=== PATIENT | male | born 1980 | race Caucasian/White ===

== ENCOUNTER 2023-08-14 04:41 | Emergency (ER) | payer BC, SELFPAY ==
[2023-08-14 04:43] VITALS: BP 157/96
--- NOTE | 2023-08-14 05:16 | ED.GENMED ---
History of Present Illness
<SHAWN Colvin - Last Filed: 08/14/23 07:11>
General
Chief Complaint: Back Pain
Source: patient
Exam Limitations: none
Time Seen by Provider: 08/14/23 04:53
Travel History
Have you had any contact with someone who has COVID-19?: No
Do you have any symptoms of coronavirus? Fever > 100 degrees, chills, cough, shortness of breath, sore throat, loss of taste or smell, muscle aches, or headache?: No
History of Present Illness
History of Present Illness:
42 YO M with a PMH of depression and HTN presents here today with complaints of chronic back pain x years. Pt reports he's had back pain ever since playing football in college. He saw his PCP one month ago, who ordered an MRI. Due to insurance
issues, he was unable to complete it. However, he is scheduled for an MRI this Tuesday. He went to urgent care yesterday. They prescribed him a steroid pack and Tylenol. He is unsure if he has felt relief since starting the steroid pack. He
reports his back pain is in his lower back. He complains of worsening lumbar spine pain and the surrounding muscles. He states it started to worsen over the holiday weekend. He does report occasional numbness and tingling down his legs through his
hips, B/L.
He states his pain feels similar to when he had kidney stones. He denies dysuria, polyuria, and burning. Denies abdominal tenderness.
Denies bowel or bladder incontinence.
Past History
<SHAWN Colvin - Last Filed: 08/14/23 07:11>
Past History
ED Past Medical History: Psychiatric (Anxiety) and Other (kidney stones)
ED Past Surgical History: Tonsilectomy and Other (Uvulectomy)
Social History
Tobacco: Non-smoker
Alcohol: None
Drug: Marijuana
Personal:
Living: with family
Employment: Employed
Review of Systems
<SHAWN Colvin - Last Filed: 08/14/23 07:11>
Review of Systems
Constitutional: Reports no symptoms
EENT: Reports no symptoms
Respiratory: Reports no symptoms
Cardiac: Reports no symptoms
ABD/GI: Reports no symptoms
: Reports no symptoms
Musculoskeletal: Reports muscle pain, muscle stiffness and back pain
Skin: Reports no symptoms
Neurological: Reports no symptoms
Phy Exam
<SHAWN Colvin - Last Filed: 08/14/23 07:11>
Physical Exam
Physical Exam:
+Tenderness over the paraspinal muscles surrounding the lumbar spine
+Tenderness over the lumbar spine
(-)Straight leg test B/L
(-)CVA Tenderness
(-)Abdominal pain
General Physical Exam
General Presentation: well appearing
General age: appears stated age
General Skin: warm and dry
General Habitus: normal
General Mental: alert
Cardiovascular Exam
Cardiovascular Exam: regular rate/rhythm
Pulmonary Exam
Pulmonary Exam: lungs clear and no respiratory distress
Gastrointestinal Exam
Gastrointestinal Exam: non tender, soft and non distended
Neurological Exam
Neurological Exam: alert, oriented x3 and speech normal
Musculoskeletal Exam
Musculoskeletal Exam: back pain and back tenderness
Psychiatric Exam
Psychiatric Exam: normal mood/affect
Course
<Maty Carrillo [facility] - Last Filed: 08/14/23 07:11>
Orders/Labs/Results
Orders:
Orders
08/14/23 06:34
CT Abd/pel Without Iv Or Oral Urgent
Comment:
Reason For Exam: right flank pain
08/14/23 06:45
Urinalysis Reflex To Culture Urgent
Date Specimen was Collected: 08/14/23
Time Specimen was Collected: 05:36
Urine Microscopic Reflex Cult Urgent
Abnormal Lab Results
08/14/23
06:45
Ur Occult Blood Reflex 2+ A
(Negative)
Urine RBC 3-6 A /HPF
(0-2)
Vital Signs
Initial and Last Documented VS:
Initial Vital Signs
Temp Pulse Resp BP Pulse Ox
98.1 F 68 16 157/96 98
08/14/23 04:43 08/14/23 04:43 08/14/23 04:43 08/14/23 04:43 08/14/23 04:43
Last Documented Vital Signs
Temp Pulse Resp BP Pulse Ox
98.1 F 59 18 146/97 95
08/14/23 04:43 08/14/23 07:40 08/14/23 07:40 08/14/23 07:40 08/14/23 07:40
<Gonzalo Monroy, DO - Last Filed: 08/14/23 07:56>
Orders/Labs/Results
Orders:
Orders
08/14/23 06:34
CT Abd/pel Without Iv Or Oral Urgent
Comment:
Reason For Exam: right flank pain
08/14/23 06:45
Urinalysis Reflex To Culture Urgent
Date Specimen was Collected: 08/14/23
Time Specimen was Collected: 05:36
Urine Microscopic Reflex Cult Urgent
Abnormal Lab Results
08/14/23
06:45
Ur Occult Blood Reflex 2+ A
(Negative)
Urine RBC 3-6 A /HPF
(0-2)
Vital Signs
Initial and Last Documented VS:
Initial Vital Signs
Temp Pulse Resp BP Pulse Ox
98.1 F 68 16 157/96 98
08/14/23 04:43 08/14/23 04:43 08/14/23 04:43 08/14/23 04:43 08/14/23 04:43
Last Documented Vital Signs
Temp Pulse Resp BP Pulse Ox
98.1 F 59 18 146/97 95
08/14/23 04:43 08/14/23 07:40 08/14/23 07:40 08/14/23 07:40 08/14/23 07:40
<Maty Carrillo [facility] - Last Filed: 08/14/23 07:11>
MDM/Problems Addressed
Differential Diagnosis Includes:
Sciatica, Lumbar radiculopathy --> Disc herniation, Low back strain
MDM/Problems Addressed:
Chronic back pain x years, worsening recently over the past month
Chronic conditions affecting care: HTN
<Maty Carrillo [facility] - Last Filed: 08/14/23 07:11>
*Critical Care Note
Total Time (30-74mins, 75-104mins- exclusive of procedures): Not Applicable
<Maty Carrillo [facility] - Last Filed: 08/14/23 07:11>
Update Note
Update Note:
Pt states he is doing worse, now complaining of pain going into his right and left lower quadrant
Has not been able to urinate, last time he urinated was around 2-3 PM, pt was given water (OKed by Dr. Monroy).
7:00 a.m.: Pt reports he urinated, but states it was difficult.
<Gonzalo Monroy DO - Last Filed: 08/14/23 07:56>
Update Note
Update Note:
Pt states he is doing worse, now complaining of pain going into his right and left lower quadrant
Has not been able to urinate, last time he urinated was around 2-3 PM, pt was given water (OKed by Dr. Monroy).
7:00 a.m.: Pt reports he urinated, but states it was difficult.
CT abdomen and pelvis without IV contrast
IMPRESSION:
No obstructing renal stone. Bladder is decompressed. Cholelithiasis without cholecystitis.
Hepatic steatosis. Splenomegaly. No pancreatitis. Adrenal glands normal.
Appendix normal. No bowel obstruction or diverticulitis.
Patient has no bowel or bladder retention or incontinence. No perianal anesthesia. Once given fluids he was able to urinate freely. Patient does have an MRI scheduled for Tuesday. He will be discharged in improved condition. Patient has
follow-up with Ortho and has an MRI for Tuesday.
Patient requests pain medication for nighttime. Will send some Percocet. Patient understands he cannot drive while on narcotic pain medicine
ED Attending Note
<SHAWN Colvin - Last Filed: 08/14/23 07:11>
-
Portions of this chart may have been created with voice recognition software.� Occasional wrong word or��sound alike� substitutions may have occurred due to the inherent limitations of voice recognition software.
Discharge Plan
Departure
Patient Disposition: Home (Routine Discharge)
Date of Disposition: 08/14/23
Time of Disposition: 07:37
Patient with high blood pressure during this ER visit?: No
Discharge Problem:
Low back pain
Instructions: Low Back Pain (DC), BLOOD PRESSURE
Prescriptions:
New
oxycodone-acetaminophen [Percocet] 5-325 mg tablet
1 tab PO Q6HPRN PRN (Reason: pain) Qty: 10 0RF
No Action
sertraline 100 MG tablet
150 mg PO DAILY
alprazolam 0.25 MG tablet
0.25 mg PO Q8HPRN PRN (Reason: anxiety/panic attack)
methylphenidate HCl 20 MG capsule,ER biphasic 50-50
20 mg PO DAILY
lisinopril 10 mg Tablet
10 mg PO DAILY
Referrals:
Viviana Stroud DO [Family Provider] -
Activity Restrictions/Additional Instructions:
Please keep your appointment for your MRI this Tuesday.
It was a pleasure meeting you and taking part in your care. We hope for your continued healing and wellness.
Please read discharge instructions in their entirety. However, they are for general education and may not describe your exact diagnosis at discharge. Information on your ER visit and medical conditions were discussed with you along with appropriate
follow up information...
If indicated, please take your medications as instructed and indicated on discharge paperwork.
Please schedule a follow up appointment as directed. Call to schedule an appointment
Please return to the emergency department with ANY change in, persisting, or worsening of symptoms. If any of your symptoms do not improve, or persist, or become more severe within 6-12 hours, please return to the emergency department for further
care.
Please return to the emergency department if you develop a headache, neck pain/stiffness, fever greater than 100.4F, chest pain, shortness of breath, persistent nausea, vomiting, slurred speech, difficulty walking, numbness/tingling, weakness, signs
of infection or any other symptoms that are worrisome to you.
If you have any questions or concerns please do not hesitate to call the Hospital at or E-mail me directly at [email or web address]
Interventions
Interventions:
*Risk Screen - Suicide Last Done: 08/14/23 04:43
*General Assessment Last Done: 08/14/23 04:43
*Neglect/Abuse Screening Last Done: 08/14/23 04:43
*ED COVID-19 Vaccine History Last Done: 08/14/23 04:55
ED-Musculoskeletal Assessment Last Done: 08/14/23 05:45
Discharge Date and Time
Print Language: ALBANIAN
[2023-08-14 05:34] VITALS: BMI 35.3
[2023-08-14 06:53] LABS: Urine Albumin Negative (Neg - Trace); Urine Bilirubin Negative (Negative); Urine Character Clear (Clear); Urine Color Yellow; Urine Glucose Negative (Negative); Urine Ketone Negative (Negative); Urine Leukocyte Negative (Negative); Urine Nitrite Negative (Negative); Urine Occult Blood 2+ (Negative); Urine Urobilinogen Negative (Neg - 1+)
[2023-08-14 07:23] LABS: Urine Mucus Moderate
[2023-08-14 07:24] LABS: Urine Amorphous Seen; Urine Hyaline Cast 0-2 /LPF (0-2); Urine Squamous Cell 0-2 /LPF (Few); Urine White Cell 0-2 /HPF (0-5)
[2023-08-14 07:40] VITALS: BP 146/97
== END 2023-08-14 07:55 | disposition home or self-care (01) ==
LOC: EMR 04:41
PROVIDERS: EMERGENCY PHYSICIAN Student in an Organized Health Care Education/Training Program; FAMILY PHYSICIAN Family Medicine
DX: G89.29 Other chronic pain (principal); M54.9 Dorsalgia, unspecified; F32.A Depression, unspecified; I10 Essential (primary) hypertension
CPT/HCPCS: 99284; 74176; 81003; 81015

== ENCOUNTER 2023-12-12 06:37 | Emergency (ER) | payer BC, SELFPAY ==
[2023-12-12 06:40] VITALS: BP 124/96
--- NOTE | 2023-12-12 07:13 | ED.GENMED ---
History of Present Illness
<Chris Hale MD, Resident - Last Filed: 12/12/23 08:32>
General
Chief Complaint: Musculo-Skeletal Complaint
Source: patient
Time Seen by Provider: 12/12/23 06:50
Travel History
Have you traveled to any high risk areas for coronavirus over the past 14 days?: No
Have you had any contact with someone who has COVID-19?: No
Do you have any symptoms of coronavirus? Fever > 100 degrees, chills, cough, shortness of breath, sore throat, loss of taste or smell, muscle aches, or headache?: No
History of Present Illness
History of Present Illness:
43-year-old male has had left ankle pain since last night. He noted tightness in his left Achilles tendon a couple of days ago, which went away by itself. Yesterday he spent a few hours apple picking in the afternoon and did not have any pain or
other symptoms until that evening. The pain has gradually gotten worse and he has significant tenderness with moving his ankle. Walking has been very painful. He took ibuprofen at 2300 last night, which helped somewhat. He does not exercise
regularly due to a slipped disc and is not active in any sports at the moment.
Past History
<Chris Hale MD, Resident - Last Filed: 12/12/23 08:32>
Past History
ED Past Medical History: HTN, Psychiatric (generalized anxiety disorder; ADHD) and Other (kidney stones)
ED Past Surgical History: Tonsilectomy and Other (Uvulectomy)
Social History
Tobacco: Non-smoker
Alcohol: None
Drug: Marijuana
Personal:
Living: with family
Employment: Employed
Review of Systems
<Chris Hale MD, Resident - Last Filed: 12/12/23 08:32>
Review of Systems
All Other Systems: Not applicable
Constitutional: Reports no symptoms
EENT: Reports no symptoms
Respiratory: Reports no symptoms
Cardiac: Reports no symptoms
ABD/GI: Reports no symptoms
: Reports no symptoms
Musculoskeletal: Reports other (left Achilles tendon pain)
Skin: Reports no symptoms
Neurological: Reports no symptoms
Endocrine: Reports no symptoms
Hematologic/Lymphatic: Reports no symptoms
Psychiatric: Reports no symptoms
Phy Exam
<Chris Hale MD, Resident - Last Filed: 12/12/23 08:32>
General Physical Exam
General Presentation: well appearing and no apparent distress
General Skin: warm and dry
General Habitus: normal
General Mental: alert
General Hydration: appears well hydrated
ENT Exam
ENT Exam: EOMI, pharynx normal, neck supple and normocephalic
Eye Exam
Eye Exam: PERRL, cornea clear and conjunctiva normal
Cardiovascular Exam
Cardiovascular Exam: regular rate/rhythm, no edema, no murmur and normal peripheral pulses
Pulmonary Exam
Pulmonary Exam: lungs clear, no respiratory distress, no rales, no crackles, no rhonchi, no stridor, no wheezing and no cough
Gastrointestinal Exam
Gastrointestinal Exam: normal bowel sounds, non tender, soft, no organomegaly, no pulsatile mass and non distended
Neurological Exam
Neurological Exam: alert, oriented x3, no motor deficits and speech normal
Musculoskeletal Exam
Musculoskeletal Exam: other (left Achilles tendon erythema, stiffness, swelling, tenderness, limited range of motion due to pain)
Skin Exam
Skin Exam: normal color, warm/dry, no rash and no petechia
Psychiatric Exam
Psychiatric Exam: normal mood/affect
Course
<Chris Hale MD, Resident - Last Filed: 12/12/23 08:32>
Orders/Labs/Results
Orders:
Orders
12/12/23 07:34
Acetaminophen [Tylenol] 650 mg PO NOW STA
Ibuprofen [Motrin] 400 mg PO NOW STA
12/12/23 08:26
Ibuprofen [Motrin] 400 mg PO NOW STA
Vital Signs
Initial and Last Documented VS:
Initial Vital Signs
Pulse Resp BP Pulse Ox
70 24 124/96 96
12/12/23 06:40 12/12/23 06:40 12/12/23 06:40 12/12/23 06:40
Last Documented Vital Signs
Temp Pulse Resp BP Pulse Ox
98.0 F 65 16 127/72 97
12/12/23 07:15 12/12/23 08:00 12/12/23 08:00 12/12/23 08:00 12/12/23 08:00
<Katya Oliver MD - Last Filed: 12/12/23 08:29>
Orders/Labs/Results
Orders:
Orders
12/12/23 07:34
Acetaminophen [Tylenol] 650 mg PO NOW STA
Ibuprofen [Motrin] 400 mg PO NOW STA
12/12/23 08:26
Ibuprofen [Motrin] 400 mg PO NOW STA
Vital Signs
Initial and Last Documented VS:
Initial Vital Signs
Pulse Resp BP Pulse Ox
70 24 124/96 96
12/12/23 06:40 12/12/23 06:40 12/12/23 06:40 12/12/23 06:40
Last Documented Vital Signs
Temp Pulse Resp BP Pulse Ox
98.0 F 65 16 127/72 97
12/12/23 07:15 12/12/23 08:00 12/12/23 08:00 12/12/23 08:00 12/12/23 08:00
<Chris Hale MD, Resident - Last Filed: 12/12/23 08:32>
*Critical Care Note
Total Time (30-74mins, 75-104mins- exclusive of procedures): Not Applicable
<Chris Hale MD, Resident - Last Filed: 12/12/23 08:32>
Update Note
Update Note:
Pain improved with ibuprofen and acetaminophen. Exam and findings consistent with Achilles tendinitis. Discussed treating this with rest, ice and NSAIDs for 5-7 days. Follow-up with primary for physical therapy referral.
ED Attending Note
<Chris Hale MD, Resident - Last Filed: 12/12/23 08:32>
-
Portions of this chart may have been created with voice recognition software.� Occasional wrong word or��sound alike� substitutions may have occurred due to the inherent limitations of voice recognition software.
<Katya Oliver MD - Last Filed: 12/12/23 08:29>
ED Attending Note
Patient seen and examined by attending physician: Yes
I performed a history and physical exam of patient and discussed management with resident, I reviewed resident's note and agree with documented findings and plan of care.: Yes
ED Attending Note:
Patient has mild erythema and area of left Achilles tendon, at insertion site. He has no calf tenderness to suggest DVT. There is no significant swelling or erythema to suggest cellulitis. Patient likely has a left Achilles tendinitis. Patient
has strong pulses in bilateral feet.
Discharge Plan
Departure
Patient Disposition: Home (Routine Discharge)
Date of Disposition: 12/12/23
Time of Disposition: 08:28
Patient with high blood pressure during this ER visit?: No
Condition: Good
Discharge Problem:
Achilles tendinitis
Instructions: Achilles Tendinopathy (DC), Achilles Tendinopathy Exercises
Prescriptions:
No Action
sertraline 100 MG tablet
150 mg PO DAILY
alprazolam 0.25 MG tablet
0.25 mg PO Q8HPRN PRN (Reason: anxiety/panic attack)
methylphenidate HCl 20 MG capsule,ER biphasic 50-50
20 mg PO DAILY
lisinopril 10 mg Tablet
10 mg PO DAILY
oxycodone-acetaminophen [Percocet] 5-325 mg tablet
1 tab PO Q6HPRN PRN (Reason: pain) Qty: 10 0RF
Referrals:
Viviana Stroud, [Family Provider] -
Activity Restrictions/Additional Instructions:
Rest for the next few days. Apply ice over the affected area as tolerated. Take ibuprofen 600 mg every 6-8 hours as needed with food for the next 5-7 days. Follow-up with your primary to discuss physical therapy to help you recover.
Interventions
Interventions:
*Risk Screen - Suicide Last Done: 12/12/23 06:40
*General Assessment Last Done: 12/12/23 07:11
*Neglect/Abuse Screening Last Done: 12/12/23 06:40
ED- Fall Risk Assessment Last Done: 12/12/23 07:07
*ED COVID-19 Vaccine History Last Done: 12/12/23 07:07
ED-Musculoskeletal Assessment Last Done: 12/12/23 07:07
ED-Skin Assessment Last Done: 12/12/23 07:07
Discharge Date and Time
Print Language: LUX[place]
[2023-12-12] MEDS: TYLENOL 650 MG PO (07:56)
[2023-12-12] MEDS: MOTRIN 400 MG PO ×2 (07:57→08:40)
[2023-12-12 08:00] VITALS: BP 127/72
--- NOTE | 2023-12-12 08:45 | EDRN ---
Reviewed discharge instructions with patient. Verbalized understanding.
[2023-12-12 08:46] VITALS: BP 117/73
== END 2023-12-12 08:50 | disposition home or self-care (01) ==
LOC: EMR 06:37
PROVIDERS: EMERGENCY PHYSICIAN Emergency Medicine; FAMILY PHYSICIAN Family Medicine
DX: M76.62 Achilles tendinitis, left leg (principal); I10 Essential (primary) hypertension; F41.1 Generalized anxiety disorder; F90.9 Attention-deficit hyperactivity disorder, unspecified type; Z87.442 Personal history of urinary calculi
CPT/HCPCS: 99282

== ENCOUNTER 2024-04-17 06:15 | Day surgery (SDC) | payer BC, SELFPAY | END 2024-04-17 08:41 | disposition home or self-care (01) | LOC: GI 06:15 | PROVIDERS: ATTENDING PHYSICIAN Surgery | DX: Z12.11 Encounter for screening for malignant neoplasm of colon (principal); K63.5 Polyp of colon; Z80.0 Family history of malignant neoplasm of digestive organs; Z83.719 Family history of colon polyps, unspecified | CPT/HCPCS: 45385; 88305 ==

== ENCOUNTER → 2024-05-25 09:22 | Outpatient (REF) | payer BC, SELFPAY ==
[2024-05-25 10:26] LABS: % Basophils 0.5 % (0-2); % Eosinophils 1.1 % (0-6); % Immature Granulocytes 1.3 % (0-0.5); % Lymphocytes 30.7 % (20.5-51.1); % Monocytes 19.7 % (1.7-9.3); % Neutrophils 46.7 % (42.2-75.2); Absolute Eosinophils 0.1 10^3/uL (0-0.7); Absolute Immature Granulocytes 0.1 10^3/uL (0-0.05); Absolute Lymphocytes 2.6 10^3/uL (1.2-3.4); Absolute Monocytes 1.7 10^3/uL (0.1-0.6); Hematocrit 58.6 % (39.0-52.0); Hemoglobin 19.3 g/dL (13.0-18.0); Mean Corp Hgb Conc. 32.9 g/dL (33.0-37.0); Mean Corpuscular Volume 79.1 fL (80.0-94.0); Mean Platelet Volume 9.6 fL (7.4-10.4); Nucleated Red Blood Cells % 0 % (-); Platelet Count 233 10^3/uL (130-400); Red Blood Cell Count 7.41 10^6/uL (4.70-6.10); White Blood Cell Count 8.5 10^3/uL (4.8-10.8)
[2024-05-25 10:51] LABS: Urine Albumin Negative (Neg - Trace); Urine Bilirubin Negative (Negative); Urine Character Clear (Clear); Urine Color Yellow; Urine Glucose Negative (Negative); Urine Ketone Negative (Negative); Urine Leukocyte Negative (Negative); Urine Nitrite Negative (Negative); Urine Occult Blood 2+ (Negative); Urine Specific Gravity 1.015 (<1.030); Urine Urobilinogen Negative (Neg - 1+)
[2024-05-25 10:52] LABS: Procalcitonin 0.06 ng/ml (0.0-0.25)
[2024-05-25 10:55] LABS: ALT (SGPT) 40 U/L (0-50); AST (SGOT) 32 U/L (17-59); Albumin 4.5 g/dl (3.5-5.0); Alkaline Phosphatase 79 U/L (38-126); Blood Urea Nitrogen 17 mg/dl (9-20); Calcium 10.1 mg/dl (8.4-10.2); Carbon Dioxide 34 mmol/L (22-30); Chloride 95 mmol/L (98-107); Glucose 87 mg/dl (70-99); Potassium 4.4 mmol/L (3.5-5.1); Sodium 138 mmol/L (135-145); Total Bilirubin 0.8 mg/dl (0.2-1.3); Total Protein 8.5 g/dl (6.3-8.2); eGFR > 60.00
[2024-05-25 11:18] LABS: Erythrocyte Sed Rate 9 mm/hour (0-20)
[2024-05-25 12:02] LABS: Glycohemoglobin (HgbA1c) 5.9 % (4.0-5.6)
[2024-05-25 12:05] LABS: Urine Amorphous Seen; Urine Mucus Many; Urine Urothelial Cell 0-2 /LPF (FEW)
[2024-05-25 12:07] LABS: Urine Red Blood Cell 0-2 /HPF (0-2); Urine White Cell 0-2 /HPF (0-5)
[2024-05-27 16:49] LABS: Bordetella Pertussis Ab, IgA 0.7 IV (<=1.1); Bordetella Pertussis Ab, IgG 2.31 IV (<=1.04); Bordetella Pertussis Ab, IgM 0.4 IV (<=1.1)
[2024-05-28 06:44] LABS: B. Pertussis, IgG IB FHA Positive; B. Pertussis, IgG IB PT Positive; B. Pertussis, IgG IB PT100 Equivocal
== END ==
LOC: RAD 09:22
PROVIDERS: ATTENDING PHYSICIAN Family Medicine
DX: R05.9 Cough, unspecified (principal); R05.2 Subacute cough; R73.01 Impaired fasting glucose
CPT/HCPCS: 36415; 71046; 80053; 81003; 81015; 83036; 84145; 85025; 85652; 86140; 86615

== ENCOUNTER 2024-05-25 18:40 | Emergency (ER) | payer BC, SELFPAY ==
[2024-05-25 18:44] VITALS: BP 141/98
[2024-05-25 19:18] LABS: COVID-19 Antigen Negative (Negative)
[2024-05-25 20:26] VITALS: BMI 34.4
--- NOTE | 2024-05-25 20:55 | ED.GENMED ---
History of Present Illness
General
Chief Complaint: Cold/Flu/URI Symptoms
Time Seen by Provider: 05/25/24 20:27
History of Present Illness
History of Present Illness:
43-year male presents the emergency department for evaluation of cough and fever. He states he has had intermittent illnesses over the past 1 month or more, he completed a course of Zithromax and steroids earlier in the week and was feeling
improved but yesterday developed recurrent symptoms. Had outpatient blood work and a chest x-ray completed prior to arrival
Past History
Past History
ED Past Medical History: HTN, Psychiatric (generalized anxiety disorder; ADHD) and Other (kidney stones)
ED Past Surgical History: Tonsilectomy and Other (Uvulectomy)
Social History
Tobacco: Non-smoker
Alcohol: None
Drug: Marijuana
Personal:
Living: with family
Employment: Employed
Review of Systems
Review of Systems
Allergies reviewed?: Yes
All Other Systems: ROS reviewed and negative except as documented in HPI and ROS
Phy Exam
Physical Exam
Physical Exam:
GEN: Well appearing, NAD, WDWN
HEENT: Oral mucosa moist, no scleral icterus
Cardiac: Regular rate and rhythm, no murmurs
Lung: No respiratory distress, no tachypnea, lungs clear to auscultation bilateral
MSK: No gross deformity or injuries
Skin: Good color, no pallor or jaundice, no rashes
Neuro: AO x3, moves all extremities freely
Psych: Calm, cooperative
Course
Orders/Labs/Results
Orders:
Orders
05/25/24 18:51
COVID-19 Antigen Urgent
Source: Nasal Swab
Influenza A+B Rapid Molecular Urgent
RUDDY Source: Nasal Swab
Specimen Description:
Vital Signs
Initial and Last Documented VS:
Initial Vital Signs
Temp Pulse Resp BP Pulse Ox
98.6 F 92 18 141/98 95
05/25/24 18:44 05/25/24 18:44 05/25/24 18:44 05/25/24 18:44 05/25/24 18:44
Last Documented Vital Signs
Temp Pulse Resp BP Pulse Ox
98.6 F 91 16 150/89 97
05/25/24 18:44 05/25/24 21:05 05/25/24 21:05 05/25/24 21:05 05/25/24 21:05
MDM/Problems Addressed
MDM/Problems Addressed:
Patient is positive for influenza. Clinically well. Discussed potential benefits and risk of Tamiflu, the patient declines at this time which is not unreasonable. Discussed the patient's polycythemia, this does appear to be somewhat chronic but
worse recently. He will follow-up as an outpatient with hematology
*Critical Care Note
Total Time (30-74mins, 75-104mins- exclusive of procedures): Not Applicable
ED Attending Note
-
Portions of this chart may have been created with voice recognition software.� Occasional wrong word or��sound alike� substitutions may have occurred due to the inherent limitations of voice recognition software.
Discharge Plan
Departure
Patient Disposition: Home (Routine Discharge)
Date of Disposition: 05/25/24
Time of Disposition: 20:55
Patient with high blood pressure during this ER visit?: No
Discharge Problem:
Influenza
Instructions: Flu in adults - Discharge instructions
Prescriptions:
No Action
sertraline 100 MG tablet
150 mg PO DAILY
alprazolam 0.25 MG tablet
0.25 mg PO Q8HPRN PRN (Reason: anxiety/panic attack)
methylphenidate HCl 20 MG capsule,ER biphasic 50-50
20 mg PO DAILY
lisinopril 10 mg Tablet
10 mg PO DAILY
oxycodone-acetaminophen [Percocet] 5-325 mg tablet
1 tab PO Q6HPRN PRN (Reason: pain) Qty: 10 0RF
Referrals:
Viviana Stroud, [Family Provider] -
Interventions
Interventions:
*Risk Screen - Suicide Last Done: 05/25/24 18:44
*General Assessment Last Done: 05/25/24 18:44
*Neglect/Abuse Screening Last Done: 05/25/24 18:44
*ED- Fall Risk Assessment Last Done: 05/25/24 20:26
*ED COVID-19 Vaccine History Last Done: 05/25/24 20:26
*Nursing Disposition Last Done: 05/25/24 21:06
ED- Pulmonary Assessment Last Done: 05/25/24 20:26
Discharge Date and Time
Discharge Date/Time: 05/25/24 21:07
Print Language: BELGIAN
[2024-05-25 21:05] VITALS: BP 150/89
== END 2024-05-25 21:07 | disposition home or self-care (01) ==
LOC: EMR 18:40
PROVIDERS: Emergency Medicine; EMERGENCY PHYSICIAN Emergency Medicine; FAMILY PHYSICIAN Family Medicine
DX: J11.1 Influenza due to unidentified influenza virus with other respiratory manifestations (principal); I10 Essential (primary) hypertension; F41.1 Generalized anxiety disorder; F90.9 Attention-deficit hyperactivity disorder, unspecified type; Z87.442 Personal history of urinary calculi
CPT/HCPCS: 99282; 87502; 87811

== ENCOUNTER → 2024-07-20 15:26 | Outpatient (REF) | payer BC, SELFPAY ==
[2024-07-20 14:59] LABS: % Basophils 0.6 % (0-2); % Eosinophils 0.6 % (0-6); % Immature Granulocytes 0.4 % (0-0.5); % Lymphocytes 21.9 % (20.5-51.1); % Monocytes 7.6 % (1.7-9.3); % Neutrophils 68.9 % (42.2-75.2); Absolute Basophils 0.1 10^3/uL (0-0.2); Absolute Eosinophils 0.1 10^3/uL (0-0.7); Absolute Lymphocytes 1.9 10^3/uL (1.2-3.4); Absolute Monocytes 0.6 10^3/uL (0.1-0.6); Absolute Neutrophils 5.8 10^3/uL (1.4-6.5); Hematocrit 50.2 % (39.0-52.0); Hemoglobin 17.1 g/dL (13.0-18.0); Mean Corp Hgb Conc. 34.1 g/dL (33.0-37.0); Mean Corpuscular Hgb 25.7 pg (27.0-31.0); Mean Corpuscular Volume 75.5 fL (80.0-94.0); Mean Platelet Volume 9.2 fL (7.4-10.4); Platelet Count 179 10^3/uL (130-400); Red Blood Cell Count 6.65 10^6/uL (4.70-6.10); Red Cell Dist. Width 13.4 % (11.5-14.5); White Blood Cell Count 8.4 10^3/uL (4.8-10.8)
== END ==
LOC: OIDL 15:26
PROVIDERS: ATTENDING PHYSICIAN Internal Medicine Hematology & Oncology
DX: D75.1 Secondary polycythemia (principal)
CPT/HCPCS: 85025

== ENCOUNTER → 2024-08-30 08:47 | Outpatient (REF) | payer BC, SELFPAY | LOC: DHSLP 08:47 | PROVIDERS: ATTENDING PHYSICIAN Internal Medicine Hematology & Oncology; FAMILY PHYSICIAN Family Medicine | DX: G47.33 Obstructive sleep apnea (adult) (pediatric) (principal); G47.00 Insomnia, unspecified | CPT/HCPCS: 95810 ==